=== PATIENT | male | born 2000 | race Two or more races ===

== ENCOUNTER 2024-07-05 15:55 | Emergency (ER) | payer BC, SELFPAY ==
[2024-07-05 16:26] VITALS: BP 146/97; PULSE 59; TEMP 36.7; O2SAT 96; BMI 30.4
--- NOTE | 2024-07-05 16:53 | XR_ITS ---
The [address] [address] Patient Name: SHANTE PASTRANA MRN: [id number] date: 2000 Sex: M Assigned Patient Location: ER Current Patient Location: ER Accession/Order Number: [id number] Exam Date: 07/05/2024 16:48 Report Date: 07/05/2024 17:16 At the request of: MORIAH WARD Procedure: XR knee LT 4V Exam: Radiographs: XR knee LT 4V Reason for exam: pain Comparison: None XR/XR knee LT 4V IMPRESSION: Trace left knee effusion. Left knee radiographs are otherwise unremarkable. Electronically authenticated by: RAMAN LIANG Date: 07/05/2024 17:16
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
== END 2024-07-05 18:04 | disposition home or self-care (01) ==
PROVIDERS: Emergency Provider Emergency Medicine
DX: M25.562 Pain in left knee (principal)
CPT/HCPCS: 73564; 99283